=== PATIENT | female | born 1965 | race Caucasian/White ===

== ENCOUNTER 2017-07-29 13:22 | Emergency (ER) | payer SELFPAY ==
[~2017-07-29] VITALS: Ht 162.6 cm; Wt 63.5 kg
--- NOTE | 2017-07-29 13:38 | NUR ---
Pt comes to er w/ multiple puncture wounds on speedy hands LT>RT, and LT fa scratches. Irrigate and clean puncture sites.
--- NOTE | 2017-07-29 13:44 | NUR ---
Dr Colvin at the bedside for eval and exam.
[2017-07-29 14:33] VITALS: BP 132/78
--- NOTE | 2017-07-29 14:33 | NUR ---
Patient discharged to home in stable conditon. Written and verbal after care instructions given. Patient verbalizes understanding of instructions.
== END 2017-07-29 14:34 | disposition home or self-care (01) ==
LOC: ER 13:22
DX: S61.051A Open bite of right thumb without damage to nail, initial encounter (principal); S61.251A Open bite of left index finger without damage to nail, initial encounter; S61.255A Open bite of left ring finger without damage to nail, initial encounter; W54.0XXA Bitten by dog, initial encounter; Y93.89 Activity, other specified; Y92.9 Unspecified place or not applicable; Y99.9 Unspecified external cause status
CPT/HCPCS: 73130; 90715; A4217; A4663